=== PATIENT | male | born 1975 | race American Indian/Alaskan Native ===

== ENCOUNTER 2017-03-24 12:51 | Emergency (ER) | payer SELFPAY ==
[2017-03-24 13:29] VITALS: BP 146/87
== END 2017-03-24 19:42 | disposition left against medical advice (07) ==
LOC: ED 12:51
DX: H92.10 Otorrhea, unspecified ear (principal); Z53.21 Procedure and treatment not carried out due to patient leaving prior to being seen by health care provider